=== PATIENT | male | born 1975 | race Caucasian/White ===

== ENCOUNTER 2021-11-25 10:28 | Emergency (ER) | payer OTHER ==
[~2021-11-25 10:28] MED LIST: CLEOCIN HCL150 MG PO; LODINE CAP 300300 MG PO
[2021-11-25 14:04] LABS: HEMOGLOBIN 16.7 gm/dl (14.0-17.5); RED BLOOD COUNT 5.65 M/UL (4.20-5.50); WHITE BLOOD COUNT 9.2 K/UL (4.5-11.0)
[2021-11-25 14:29] LABS: BUN/CREATININE RATIO 29 (0-10)
[2021-11-25] MEDS ORDERED: ZESTRIL10 MG PO (15:52)
[2021-11-25] MEDS ORDERED: IBUPROFEN800 MG PO (15:52)
[2021-11-25] MEDS ORDERED: DOXYCYCLINE HY100 M2 PO (16:04)
== END 2021-11-25 16:24 | disposition home or self-care (01) ==
LOC: ER1 10:28
PROVIDERS: Physician Assistant
DX: M70.22 Olecranon bursitis, left elbow (principal); L03.114 Cellulitis of left upper limb; R51.9 Headache, unspecified; M79.89 Other specified soft tissue disorders; R03.0 Elevated blood-pressure reading, without diagnosis of hypertension; F17.200 Nicotine dependence, unspecified, uncomplicated; Z88.2 Allergy status to sulfonamides
CPT/HCPCS: 70450; 73080; 73562; 80053; 82550; 82553; 84484; 84550; 85025; 93005; 99284